=== PATIENT | female | born 1935 | race Caucasian/White ===

== ENCOUNTER → 2018-08-18 | Outpatient (CLI) | payer OTHER ==
[~2018-08-18] VITALS: Ht 157.5 cm; Wt 77.1 kg
[~2018-08-18] MED LIST: APAP650 PO; AUGMENTIN 875-1 EACH PO; BYSTOLIC 5 MG5 M1 PO; CO Q-10100 MG PO; HAIR, SKIN AND1 EAC1 PO; IRON; IRON325 PO; LOZOL; OSTEO BI-FLEX1 EAC1 PO; PROTONIX40 M2 PO; [UNRECOGNIZED DRUG - OTHER] PO
--- NOTE | ~2018-08-18 | PATH ---
[facility] [place] [address] PATHOLOGY RPT PROCEDURE Name: YESENIA COLLIER Room #: REG [facility] Dorota.#: [id number] Admission: 08/18/18 Date of : 39 Discharge: Report #: [id number] Path Case #: [id number] [facility] Accession Number: [id number] . 01 Material submitted: . PART A: SMALL BOWEL BX R/O CELIAC PART B: GASTRIC ULCER BX PART C: 60CM POLYP . 01 Clinical history: . Pre-OP DX: Anemia Post-OP DX: Polyp . 02 Diagnosis: A. Small bowel mucosa, small bowel rule out celiac, endoscopic biopsy: - Mild active peptic duodenitis. - No significant villous blunting or increase in intraepithelial lymphocytes. . B. Gastric mucosa, gastric ulcer, endoscopic biopsy: - Moderate active gastritis with features of reactive gastropathy as well as ulceration (please see comment). - Negative for intestinal metaplasia, atrophy or dysplasia. . C. Polyp, at 60 cm, endoscopic biopsy: - Tubular adenoma. - Negative for high-grade dysplasia. . 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 02 Comment: Examination of the "gastric ulcer" biopsy tissue shows two fragments comprised of ulceration as well as granulation tissue. The remainder of fragments show moderate active gastritis with features of reactive gastropathy. Immunohistochemical stains performed on block B1 included a Helicobacter pylori immunohistochemical stain, AE1/AE3, CMV* and HSV-1*. There are no Helicobacter pylori organisms identified on the stain. The cytokeratin stain shows no reactivity within the plasmacytoid cells (within the inflammatory infiltrate). There are no viral inclusions (CMV, and HSV-1) identified on the immunohistochemical stain. GMS fungal special stain shows no definite fungal hyphal elements. . *This test was developed and its performance characteristics determined by [facility]. It has not been cleared or approved by the U.S. Food and Drug Administration. The FDA has determined that such clearance or approval is not necessary. This test is used for clinical purposes. It should not be [address] [address] PATHOLOGY RPT PROCEDURE Name: YESENIA COLLIER Room #: REG CL[facility]i Larios#: [id number] Admission: 08/18/18 Date of : 39 Discharge: Report #: [id number] Path Case #: [id number] regarded as investigational or for research. This laboratory is certified under the Clinical Laboratory Improvement Amendments of 1988 (CLIA) as qualified to perform high complexity clinical laboratory testing. . 02 Electronically signed: . Liss Haynes MD, Pathologist NPI- [id number] . 01 Gross description: . A. Received in formalin labeled "Yesenia Collier, small bowel BX," are multiple segments of au soft tissue measuring 1.7 x 0.5 x 0.1 cm in aggregate dimensions. The specimen is filtered and entirely submitted in cassette A1. . B. Received in formalin labeled "Yesenia Collier, gastric ulcer BX," is a single segment of au soft tissue measuring 0.5 cm in maximum dimension. The specimen is entirely submitted in cassette B1. . C. Received in formalin labeled "Yesenia Collier, 60 cm polyp," is a single segment of au soft tissue measuring 0.5 cm in maximum dimension. The specimen is entirely submitted in cassette C1. (TSD; 08/18/2018) TOB/TOB . 02 Pathologist provided ICD-10: K29.80, K29.70, K25.9, K31.9, D12.6 . 02 CPT . 027276, 289971, 177450, H95973, O26101, 783227 Specimen Comment: A courtesy copy of this report has been sent to Specimen Comment: [phone], . Specimen Comment: Report sent to / DR MEJIA Performed at: [address] [facility] [address], [place], [place] [id number] MD Saroj Varghese MD Phone: [phone] Performed at: [address] [facility] [id number] MD Liss Haynes MD Phone: [phone]
--- NOTE | ~2018-08-18 | P ---
[facility] [place] [address] PROCEDURE REPORT Name: YESENIA GONZALEZ Room #: REG [facility]#: [id number] Admission: 08/18/18 Attend Phys: Salas Beck MD Discharge: Date of : 39 Report #: [id number] THIS REPORT FOR: //name// CC: Salas Ramsey MD BRIEF HISTORY: The patient is an 82-year-old woman with recent findings of iron deficiency anemia requiring blood transfusions. She does not use nonsteroidals on a regular basis. She has some vague abdominal pain. PREOPERATIVE DIAGNOSIS: Iron-deficiency anemia requiring transfusion. POSTOPERATIVE DIAGNOSES: 1. A 5 mm prepyloric antral ulcer, benign appearing without stigmata of bleeding. 2. Large hiatus hernia. 3. Tortuous distal esophagus. 4. Patchy bulbar duodenitis. MEDICATIONS: Deep sedation with propofol per anesthesia. SPECIMENS: 1. Small bowel biopsies to rule out celiac disease. 2. Biopsies of gastric ulcer. ESTIMATED BLOOD LOSS: 3 mL. PROCEDURE: EGD with biopsy. FINDINGS: Prior to propofol sedation, the procedure of upper endoscopy was discussed with the patient as well as potential risks, benefits and its complications. She indicates she understands and desires to proceed. With the patient in the left lateral decubitus position, the Olympus video endoscope was inserted in the cervical esophagus under direct vision without difficulty. Examination of this organ through its entire length revealed normal esophageal mucosa down to the squamocolumnar junction. There was no evidence of ulcers, erosions or bleeding in the esophagus. However, the distal esophagus was very tortuous, likely a result of her large hiatus hernia. The GE junction was identified at about 32 cm. The scope was advanced into very large hiatus hernia. There was a small amount of liquid in the hernia. No evidence of bleeding. Significant ulcers or erosions were not seen. The scope was advanced in the stomach, was examined on end view as well as retroflexed views. Examination in the retroflexed position revealed a large hiatus hernia. No other abnormalities were seen. Examination of the distal stomach revealed a punched out gastric ulcer at about the 9 o'clock position with reference in the [facility] [address] [place] [address] PROCEDURE REPORT Name: YESENIA GONZALEZ Room #: REG [facility].#: [id number] Admission: 08/18/18 Attend Phys: Salas Beck MD Discharge: Date of : 39 Report #: [id number] pylorus. It was moderately deep, but had a smooth and benign appearance. There were no stigmata of bleeding. Biopsies were obtained. The pylorus, duodenal bulb, postbulbar duodenal sweep were inspected. Examination of the bulb revealed patchy bulbar duodenitis, but no ulcers. No bleeding lesions were seen. Due to her anemia, multiple small bowel biopsies were obtained to evaluate for celiac disease. At that point, the scope was slowly withdrawn and careful circumferential views confirmed the above findings. The patient tolerated the procedure well. CONDITION OF THE PATIENT UPON DISCHARGE: Following procedure, the patient drowsy and prepared for colonoscopy. INSTRUCTIONS TO THE PATIENT AND FAMILY AT THE TIME OF DISCHARGE: As for her iron deficiency anemia, she does have a small ulcer. We will follow up on biopsies. We will have her start pantoprazole 40 mg daily. She is to take daily half hour before breakfast. As far as her anemia, she could have had bleeding from the ulcer. However, this is a chronic anemia. This may be on a chronic basis. Her large hiatus hernia may be a factor. Repair of her hernia may be needed if iron deficiency anemia continued to be a problem. At this point in time, we will proceed with colonoscopy. <ELECTRONICALLY SIGNED> By: Salas Beck MD 08/19/18 1030 [id number] [id number] Salas Beck MD /nt
--- NOTE | ~2018-08-18 | P ---
[facility] [place] [address] [place] [address] PROCEDURE REPORT Name: YESENIA GONZALEZ Room #: REG [facility].#: [id number] Admission: 08/18/18 Attend Phys: Salas Beck MD Discharge: Date of : 39 Report #: [id number] THIS REPORT FOR: //name// CC: Salas Ramsey MD DATE OF SERVICE: 08/18/2018 BRIEF HISTORY: The patient is an 82-year-old woman with recent findings of iron deficiency anemia. Last colonoscopy was about 5 years ago. She does report a history of colon polyps. She has also had problems with change in bowel habits with increasing constipation. PREOPERATIVE DIAGNOSIS: Iron deficiency anemia and modification of bowel habits. POSTOPERATIVE DIAGNOSES: 1. Diminutive polyp at 60 cm. 2. Moderately severe sigmoid diverticulosis coli. MEDICATIONS: Deep sedation with propofol per anesthesia. SPECIMEN: Polyp from 60 cm. ESTIMATED BLOOD LOSS: 3 mL. PROCEDURE: Colonoscopy to cecum and terminal ileum with biopsy. FINDINGS: Prior to propofol sedation, procedure of colonoscopy was discussed with the patient as well as potential risks and its complications. She indicates she understands and desires to proceed. DESCRIPTION OF PROCEDURE: With the patient in left lateral decubitus position, digital examination was completed, which revealed no abnormalities. Subsequently, the Olympus video colonoscope was introduced in the rectum, advanced under direct vision to the cecum. This was done with minimal difficulty. The cecum was identified by the ileocecal valve and the appendiceal orifice. I was able to visualize the distal segment of terminal ileum, which was inspected and noted to be unremarkable. At that point, the scope was slowly withdrawn and careful circumferential views were obtained. On slow withdrawal of the scope, the prep was good. The mucosa was within normal limits, normal vascular pattern, normal light reflex. As we withdrew the scope, no mucosal abnormalities were seen until we got to 60 cm upon withdrawal, at which point, a diminutive polyp was seen and removed by biopsy. Scope was further withdrawn and she was noted to have moderately severe diverticular disease in sigmoid [address] [address] PROCEDURE REPORT Name: YESENIA GONZALEZ Room #: REG [facility] Raya.#: [id number] Admission: 08/18/18 Attend Phys: Salas Beck MD Discharge: Date of : 39 Report #: [id number] colon without endoscopic evidence of diverticulitis. The scope was withdrawn in the rectum and no abnormalities were seen. Upon retroflexion, no abnormalities were seen. Scope was withdrawn. The patient tolerated the procedure well, no bleeding lesions were seen on this examination. CONDITION OF THE PATIENT UPON DISCHARGE: Following procedure, the patient drowsy, aroused, conversant and will be discharged home when fully ambulatory. INSTRUCTIONS TO THE PATIENT AND FAMILY AT THE TIME OF DISCHARGE: As far as iron deficiency anemia, I do not see any bleeding lesions. She did have a diminutive polyp. The polyp is not likely significant with regards to iron deficiency anemia. We will follow up on the path. However, at this point in life, likelihood of benefit from continued routine surveillance colonoscopy is minimal. She will return to care of Dr. Frantz Ramsey and return to see me as needed. In addition, see upper endoscopy reports for additional comments with regards to her anemia. Last colonoscopy was more than 5 years ago. Withdrawal time from the cecum was 12 minutes 12 seconds. <ELECTRONICALLY SIGNED> By: Salas Beck MD 08/19/18 1030 1041 [id number] Salas Beck MD /nt
== END | disposition home or self-care (01) ==
LOC: GI 06:23
DX: D12.4 Benign neoplasm of descending colon (principal); K29.70 Gastritis, unspecified, without bleeding; K29.80 Duodenitis without bleeding; K57.30 Diverticulosis of large intestine without perforation or abscess without bleeding; K31.9 Disease of stomach and duodenum, unspecified; K25.9 Gastric ulcer, unspecified as acute or chronic, without hemorrhage or perforation; K44.9 Diaphragmatic hernia without obstruction or gangrene; K22.8 Other specified diseases of esophagus; M79.7 Fibromyalgia; B19.10 Unspecified viral hepatitis B without hepatic coma; Z88.2 Allergy status to sulfonamides; Z90.711 Acquired absence of uterus with remaining cervical stump; Z98.890 Other specified postprocedural states; Z88.8 Allergy status to other drugs, medicaments and biological substances; Z79.899 Other long term (current) drug therapy
CPT/HCPCS: 62110; 62900